=== PATIENT | male | born 1995 | race Caucasian/White ===

== ENCOUNTER 2022-06-19 19:52 | Emergency (ER) | payer BC ==
[2022-06-19] MEDS ORDERED: Acetaminophen/HYDROcodone 325-10 MG Tab PO ONE (22:54)
== END 2022-06-19 23:28 | disposition home or self-care (01) ==
LOC: MW.ED 19:52
DX: S83.512A Sprain of anterior cruciate ligament of left knee, initial encounter (principal); M79.675 Pain in left toe(s); W23.0XXA Caught, crushed, jammed, or pinched between moving objects, initial encounter
CPT/HCPCS: 73562-26-LT; 73562-LT; 73630-26-LT; 73630-LT; 99283-25